=== PATIENT | female | born 1965 | race Caucasian/White ===

== ENCOUNTER → 2021-04-14 08:49 | Outpatient (CLI) | payer OTHER, SELFPAY ==
--- NOTE | ~2021-04-14 | US_ITS ---
EXAMINATION: US abdomen complete DATE: 04/14/2021 09:15 INDICATION: Elevated liver enzymes TECHNIQUE: Multiple grayscale and Doppler ultrasound images of the abdomen were obtained. COMPARISON: None FINDINGS: The pancreatic head and body are normal in appearance. The pancreatic tail is not visualized. Abdomi nal aorta is normal in caliber measuring 2.5 cm in AP diameter proximally, 2.4 cm in the mid aorta an d 2.6 cm in the distal aorta. Liver has normal echogenicity and contour, with a smooth surface. No li selina lesion identified. No intrahepatic biliary duct dilation suspected. Portal venous flow was seen i n the hepatopetal, normal direction and has normal Doppler waveform. Multiple shadowing gallstones wi thin the otherwise normal-appearing gallbladder with no gallbladder dilation or wall thickening. Sono graphic Nogueira sign was reported as negative by the correctional lieutenant. The common bile duct measures 5-6 mm in maximal diameter which is normal. There is normal renal contour and echogenicity bilaterally. The right kidney measures 10.1 x 4.8 x 5.8 cm and the left 9.1 x 5.8 x 4.3 cm. There are no focal renal lesions identified. There is no hydronephrosis. Normal spleen measuring 10.2 cm in maximal length. IMPRESSION: 1. Cholelithiasis with no evidence of cholecystitis or biliary ductal dilation. Reviewed, dictated and finalized at location A.
== END ==
PROVIDERS: Visit Provider Family Medicine
DX: R74.8 Abnormal levels of other serum enzymes (principal); K80.20 Calculus of gallbladder without cholecystitis without obstruction
CPT/HCPCS: 76700

== ENCOUNTER 2021-04-21 09:56 | Outpatient (CLI) | payer OTHER, SELFPAY ==
--- NOTE | 2021-04-21 | ECG_ITS ---
Measurements Intervals [place] Rate: 74 P: 48 ND: 130 QRS: 39 QRSD: 105 T: 57 QT: 391 QTc: 434 Interpretive Statements SINUS RHYTHM MINIMAL Q WAVES- INFERIOR LEADS BASELINE ARTIFACT- II, III, AVF BORDERLINE ECG Electronically Signed On 04-21-2021 11:21:36 CDT by Tano Dorsey D.O.
== END 2021-04-21 09:57 | disposition home or self-care (01) ==
PROVIDERS: PCP Family Medicine; Visit Provider Nurse Practitioner Adult Health
DX: E66.01 Morbid (severe) obesity due to excess calories (principal); G47.33 Obstructive sleep apnea (adult) (pediatric); I10 Essential (primary) hypertension; E11.9 Type 2 diabetes mellitus without complications; R94.31 Abnormal electrocardiogram [ECG] [EKG]
CPT/HCPCS: 93005

== ENCOUNTER 2022-08-14 14:56 | Outpatient (CLI) | payer OTHER, SELFPAY ==
--- NOTE | ~2022-08-14 | DEXA_ITS ---
Bone Density Report Name: MARCO A CAMPBELL Age: 57 Sex: Female Ethnicity: White Date of : 1965 Indication: postmenopausal; screening for osteoporosis; height loss; Referring Provider: VAMSHI ALVARES Study: Bone densitometry was performed. Exam Date: August 14, 2022 Accession number: [id number] Bone Density: Region BMD T-score Z-score Classification AP Spine(L1-L4) 0.956 -0.8 0.4 Normal Femoral Neck (Left) 0.663 -1.7 -0.5 Osteopenia Total Hip (Left) 0.794 -1.2 -0.4 Osteopenia Femoral Neck (Right) 0.660 -1.7 -0.5 Osteopenia Total Hip (Right) 0.761 -1.5 -0.7 Osteopenia Total Hip Mean 0.778 -1.4 -0.6 Osteopenia World Health Organization criteria for BMD impression classify patients as: Normal (T-score at or above -1.0), Osteopenia (T-score between -1.0 and -2.5), or Osteoporosis (T-score at or below -2.5). 10-year Fracture Risk(1): Major Osteoporotic Fracture 7.6% Hip Fracture 0.7% Reported Risk Factors: [place] (), Neck BMD=0.660, BMI=29.9 (1) FRAX(R) Version 3.08. Fracture probability calculated for an untreated patient. Fracture probability may be lower if the patient has received treatment. Clinical Information Provided by Patient: Has used the following medications: HRT (i.e. estrogen/hormone therapy), Vitamin D, Calcium Has the following medical conditions: gastric bypass Patient maximum height was 64 Menopause Age: 55 No regular weight bearing exercise Drinks caffeinated beverages Onset of menses at age 13 Number of children 1 Impression: The patient has low bone mass, based on the Left Femoral Neck T-score. The patient has an estimated ten-year risk of hip fracture of 0.7% and an estimated ten-year risk of major fracture of 7.6%, based on the WHO FRAX algorithm. Discussion: BONE DENSITY IS LOW AT ONE OR MORE SKELETAL SITES. This patient's lowest T-score is low at one or more skeletal sites. It meets the World Health Organization's (WHO) criteria for ?low bone mass? (T-score between -1.0 and -2.5). The patient's 10-year risk of fracture as calculated by FRAX is less than the threshold where pharmacological therapy is recommended by the National Osteoporosis Foundation (NOF). However, all treatment decisions require clinical judgment and consideration of individual patient factors, including patient preferences, comorbidities, previous drug use, risk factors not captured in the FRAX model (e.g., frailty, falls, vitamin D deficiency, increased bone turnover, interval significant decline in bone density) and possible under or overestimation of fracture risk by FRAX. The patient should follow a healthful lifestyle (good nutrition with adequate calcium and vitamin D, and appropriate weight-bearing exercise). Follow-Up: Consider repeating this study in 2
--- NOTE | ~2022-08-14 | MM_ITS ---
EXAMINATION: MM screening conor BI w alan HISTORY: Screening mammogram TECHNIQUE: Craniocaudal and mediolateral oblique 3-D tomosynthesis images were obtained and synthetic 2-D images were generated. CAD analysis was submitted and interpreted. COMPARISON: 04/24/2018, 06/13/2016, 06/03/2014 bilateral screening mammogram examinations BREAST PARENCHYMAL COMPOSITION: There are scattered areas of fibroglandular density. FINDINGS: There is no evidence of suspicious mass, calcification, or architectural distortion to sugg est malignancy in either breast. There has been no suspicious interval change. IMPRESSION: 1. No mammographic evidence of malignancy. 2. Recommend routine screening mammography in one year. BI-RADS Category 1: Negative Reviewed, dictated and finalized at location A.
== END 2022-08-14 14:57 | disposition home or self-care (01) ==
PROVIDERS: PCP Family Medicine; Visit Provider Obstetrics & Gynecology
DX: Z12.31 Encounter for screening mammogram for malignant neoplasm of breast (principal); Z78.0 Asymptomatic menopausal state; M85.852 Other specified disorders of bone density and structure, left thigh; M85.851 Other specified disorders of bone density and structure, right thigh
CPT/HCPCS: 77063; 77067; 77080

== ENCOUNTER 2023-09-25 09:03 | Outpatient (CLI) | payer OTHER, SELFPAY ==
--- NOTE | ~2023-09-25 | MM_ITS ---
EXAMINATION: MM screening conor BI w alan HISTORY: Screening TECHNIQUE: Craniocaudal and mediolateral oblique 3-D tomosynthesis images were obtained and synthetic 2-D images were generated. CAD analysis was submitted and interpreted. COMPARISON: Comparison to multiple prior studies sequentially, with oldest reviewed study dated 05/2018. BREAST PARENCHYMAL COMPOSITION: Breast composed of scattered areas of fibroglandular density FINDINGS: There is no evidence of suspicious mass, calcification, or architectural distortion to sugg est malignancy in either breast. There has been no suspicious interval change. IMPRESSION: 1. No mammographic evidence of malignancy. 2. Recommend routine screening mammography in one year. BI-RADS Category 1: Negative Reviewed, dictated and finalized at location A. HIATRIC NP
== END 2023-09-25 09:04 | disposition home or self-care (01) ==
LOC: ANHIMG 09:05
PROVIDERS: PCP Family Medicine; Visit Provider Obstetrics & Gynecology
DX: Z12.31 Encounter for screening mammogram for malignant neoplasm of breast (principal)
CPT/HCPCS: 77063; 77067

== ENCOUNTER 2024-10-14 13:45 | Emergency (ER) | payer OTHER, SELFPAY ==
--- NOTE | ~2024-10-14 | XR_ITS ---
XR finger 3rd LT min 2V Ordering provider: Constance Sotelo APRN History: . injury Lt 3rd finger . Comparison: None. FINDINGS: BONES: No acute fracture or dislocation. JOINT SPACES: Normal. SOFT TISSUES: Normal. IMPRESSION: No definite acute osseous abnormality. Reviewed, dictated and finalized at location A. AR TACKER
[2024-10-14 13:56] VITALS: BP 141/90; PULSE 72; RESP 16; TEMP 36.2; O2SAT 100
--- NOTE | 2024-10-14 14:06 | ED_ITS ---
HPI - Extremity Injury (Upper) General Chief Complaint: Extremity Injury, Upper Stated Complaint: left middle finger injury Source: patient Mode of arrival: ambulatory Limitations: no limitations History of Present Illness HPI narrative: 59 y/o female presented for c/o injury to left middle finger. States the finger was stuck in her dog's collar. Now reports the end of the finger is bent and she is unable to straighten the last knuckle. However she states it is less bent than it was earlier. Denies pain, numbness or tingling. Related Data Home Medications Medication Instructions Recorded Confirmed cyanocobalamin (vitamin B-12) 500 500 mcg PO DAILY 10/23/21 09/23/24 mcg tablet estradiol-norethindrone acet 1 1 tablet PO DAILY 03/29/22 09/23/24 mg-0.5 mg tablet (Mimvey) semaglutide 1 mg/dose (4 mg/3 mL) 2 mg subcut 02/21/24 09/23/24 subcutaneous pen injector (Ozempic) ondansetron HCl 4 mg tablet 4 mg PO Q6H PRN 09/23/24 09/23/24 Allergies Allergy/AdvReac Type Severity Reaction Status Date / Time No Known Allergies Allergy Unknown Verified 10/14/24 14:13 Review of Systems Review of Systems: CONSTITUTIONAL: Denies body aches, fever, chills CARDIOVASCULAR: Denies chest pain, palpitations, or edema. RESPIRATORY: Denies cough or dyspnea. SKIN: Denies wounds. MUSCULOSKELETAL: Reports left middle finger deformity NEUROLOGIC: Denies numbness, tingling, or weakness. All systems reviewed & are unremarkable except as noted in HPI and below PMFSH Past Medical History Medical History Morbid obesity with BMI of 40.0-44.9, adult PCOS (polycystic ovarian syndrome) Surgical History Surgical History H/O gastric bypass Family History Family History Grandparent Family history of thyroid disease Acute myocardial infarction Other Family history of alcoholism Family history of mental disorder Social History Social History Social History: Caffeine-daily coffee/tea Smoking status: Never smoker Alcohol intake: current Alcohol use details: wine 2-3 times weekly Substance use: never Substance use type: does not use Do You Feel Safe in your Home?: Yes Lack of Transportation: No Lack of Food: Sometimes True Current Housing: I Have Housing Concerned About Future Housing: No Difficulty Paying Gas/Electric Bills: No Difficulty Paying for Meds: No Currently Unemployed: No Education: Master's Degree or Higher Difficulty w/ Childcare or Family Care: No Comments At time of signature, I have reviewed and agree with nursing past medical, surgical, social and family history unless otherwise noted. Please see nursing chart for further information. There is no relevant family history pertinent to the presenting complaint Exam Narrative: GENERAL: Well-appearing CHEST: Speaks in full sentences. No respiratory distress. HEART: Regular rate and rhythm. Normal and equal peripheral pulses. EXTREMITIES: Left hand 3rd digit distal phalanx with approx 45 degree flexion towards palm, tolerates full extension with passive ROM. Minimally tender with palpation to DIP. No swelling. Digit has normal strength and sensation. No open wounds, No ecchymosis. pulse palpable and equal bilaterally, skin warm, dry, pink. Capillary refill less than 3 seconds. SKIN: Warm, dry NEURO: Alert and oriented x3. PSYCH: Normal mood and affect Course Course Emergency Course: Patient is aware of diagnosis, understands and agrees to treatment plan. Anticipatory guidance given. Patient agrees to follow-up as directed and is aware of reasons to seek care at the emergency department. Portions of this record may have been created with voice recognition software Level of Care: Express Care Visit Vital Signs Vital signs: Vital Signs Temperature 97.1 F L 10/14/24 13:56 Pulse Rate 72 10/14/24 13:56 Respiratory Rate 16 10/14/24 13:56 Blood Pressure 141/90 H 10/14/24 13:56 Pulse Oximetry 100 10/14/24 13:56 Temperature 97.1 F L 10/14/24 13:56 Pulse Rate 72 10/14/24 13:56 Respiratory Rate 16 10/14/24 13:56 Blood Pressure 141/90 H 10/14/24 13:56 Pulse Oximetry 100 10/14/24 13:56 Oxygen Delivery Room Air 10/14/24 14:00 Reviewed MDM - Extremity Injury (Upper) MDM Narrative Medical decision making narrative: Discussed physical exam findings and xray. Metal finger splint applied. Advised supportive measures and signs/symptoms to go to the ER. Pt is appropriate for outpt treatment and f/u with pcp/Hand specialist. Differential Diagnosis Differential diagnosis: Likely finger sprain, dislocation of finger and other (finger fracture) Imaging Data Radiologist's impression: Patient: Eufemia Polk : 1965 MR#: [id number] Age: 59 Acct:[id number] Loc: [facility] ADM Date: 10/14/24Attending Dr: Ordering Physician: Constance Sotelo APRN Date of Service: 10/14/24 Procedure(s): XR finger 3rd LT min 2V Accession Number(s): [id number] cc: Constance Sotelo APRN; Mustapha Irving MD~ XR finger 3rd LT min 2V Ordering provider: Constance Sotelo APRN History: . injury Lt 3rd finger . Comparison: None. FINDINGS: BONES: No acute fracture or dislocation. JOINT SPACES: Normal. SOFT TISSUES: Normal. IMPRESSION: No definite acute osseous abnormality. Discharge Plan Discharge Clinical Impression: Finger sprain Patient Disposition: Home, Self-Care Condition: Stable Instructions: Finger Sprain (ED) Additional Instructions: Rest and elevate the right hand Apply ice 15-20 minute intervals several times a day Keep the splint in place, removing it often to perform range of motion exercises until seen by PCP Motrin 600mg alternate with Tylenol 1000mg every 8 hours as needed Follow up with your primary care provider, call to schedule appointment Go to the ER for worsening symptoms or concerns Prescriptions: No Action estradiol-norethindrone acet [Mimvey] 1-0.5 mg tablet 1 tablet PO DAILY mometasone 0.1 % ointment 1 applic topical DAILY PRN (Reason: rash) Qty: 15 1RF cyanocobalamin (vitamin B-12) 500 mcg tablet 500 mcg PO DAILY Ozempic 1 mg/dose (4 mg/3 mL) pen injector 2 mg subcut ondansetron HCl 4 mg tablet 4 mg PO Q6H PRN omeprazole 40 mg capsule,delayed release(DR/EC) 40 mg PO DAILY Qty: 90 1RF diphenhydramine HCl [Benadryl] 25 mg capsule 25 mg PO QHS Qty: 30 0RF hydrochlorothiazide 12.5 mg tablet See Rx Instructions .ROUTE .COMPLEX Qty: 90 3RF Dose Instruction: TAKE 1 TABLET DAILY Rx Instructions: TAKE 1 TABLET DAILY irbesartan 300 mg tablet 300 mg PO DAILY Qty: 90 1RF bupropion HCl [Wellbutrin XL] 300 mg tablet extended release 24 hr 300 mg PO QAM Qty: 90 1RF triamcinolone acetonide 0.025 % ointment 1 applic topical TID Qty: 15 0RF Follow-up/Referrals: Johann Moss MD [Physician] - Mustapha Irving MD [Primary Care Provider] - Time of Disposition: 14:49
--- NOTE | 2024-10-14 15:00 | PC.NURSE ---
+PMS POST SPLINT APPLICATION
== END 2024-10-14 14:53 | disposition home or self-care (01) ==
PROVIDERS: Emergency Provider Nurse Practitioner Family; PCP Family Medicine
DX: S63.613A Unspecified sprain of left middle finger, initial encounter (principal); X58.XXXA Exposure to other specified factors, initial encounter; E28.2 Polycystic ovarian syndrome; E66.01 Morbid (severe) obesity due to excess calories; Z68.23 Body mass index [BMI] 23.0-23.9, adult; Z98.84 Bariatric surgery status
CPT/HCPCS: 29130; 73140; 99213; G0463

== ENCOUNTER 2025-06-07 10:12 | Outpatient (CLI) | payer OTHER, SELFPAY ==
--- NOTE | ~2025-06-07 | DEXA_ITS ---
Bone Density Report Name: MARCO A CAMPBELL Age: 60 Sex: Female Ethnicity: White Date of : 1965 Indication: osteopenia; height loss; Referring Provider: SUSAN STONE Study: Bone densitometry was performed. Exam Date: June 07, 2025 Accession number: [id number] Bone Density: Region BMD T-score Z-score Classification AP Spine(L1-L4) 0.999 -0.4 1.0 Normal Femoral Neck (Left) 0.668 -1.6 -0.3 Osteopenia Total Hip (Left) 0.800 -1.2 -0.2 Osteopenia Femoral Neck (Right) 0.615 -2.1 -0.8 Osteopenia Total Hip (Right) 0.735 -1.7 -0.7 Osteopenia Total Hip Mean 0.767 -1.5 -0.5 Osteopenia World Health Organization criteria for BMD impression classify patients as: Normal (T-score at or above -1.0), Osteopenia (T-score between -1.0 and -2.5), or Osteoporosis (T-score at or below -2.5). 10-year Fracture Risk(1): Major Osteoporotic Fracture 9.8% Hip Fracture 1.3% Reported Risk Factors: [place] (), Neck BMD=0.615, BMI=24.8 (1) FRAX(R) Version 3.08. Fracture probability calculated for an untreated patient. Fracture probability may be lower if the patient has received treatment. Previous Exams: Region Exam Age BMD T-score BMD Change BMD Change Date g/cm2 vs Baseline vs Previous AP Spine (L1-L4) 06/07/2025 60 0.999 -0.4 0.043 (4.5%)* 0.043 (4.5%)* 08/14/2022 57 0.956 -0.8 Total Hip(Left) 06/07/2025 60 0.800 -1.2 0.006 (0.7%) 0.006 (0.7%) 08/14/2022 57 0.794 -1.2 Total Hip(Right) 06/07/2025 60 0.735 -1.7 -0.027 (-3.5%) -0.027 (-3.5%) 08/14/2022 57 0.761 -1.5 *Denotes significance at 95% confidence level, LSC for AP Spine = 0.022 g/cm2, LSC for Total Hip = 0.027 g/cm2 Clinical Information Provided by Patient: Has used the following medications: Vitamin D, Calcium Patient maximum height was 64.0 Menopause Age: 55 No regular weight bearing exercise Drinks caffeinated beverages Onset of menses at age 13 Number of children 1 Missed period for more than 6 months in a row Impression: The patient has low bone mass, based on the Right Femoral Neck T-score. The patient has an estimated ten-year risk of hip fracture of 1.3% and an estimated ten-year risk of major fracture of 9.8%, based on the WHO FRAX algorithm. No significant bone loss was observed. Discussion: BONE DENSITY IS LOW AT ONE OR MORE SKELETAL SITES. This patient's lowest T-score is low at one or more skeletal sites. It meets the World Health Organization's (WHO) criteria for ?low bone mass? (T-score between -1.0 and -2.5). The patient's 10-year risk of fracture as calculated by FRAX is less than the threshold where pharmacological therapy is recommended by the National Osteoporosis Foundation (NOF). However, all treatment decisions require clinical judgment and consideration of individual patient factors, including patient preferences, comorbidities, previous drug use, risk factors not captured in the FRAX model (e.g., frailty, falls, vitamin D deficiency, increased bone turnover, interval significant decline in bone density) and possible under or overestimation of fracture risk by FRAX. The patient should follow a healthful lifestyle (good nutrition with adequate calcium and vitamin D, and appropriate weight-bearing exercise). Follow-Up: Consider repeating this study in 2 to 3 years to reassess this patient's status, or sooner if there is some new clinical indication. Reported by: ARAVIND on 06/07/2025 11:17:00 AM. Reviewed, dictated and finalized at location A.
--- NOTE | ~2025-06-07 | MM_ITS ---
EXAMINATION: MM screening conor BI w alan HISTORY: Screening TECHNIQUE: Craniocaudal and mediolateral oblique 3-D tomosynthesis images were obtained and synthetic 2-D images were generated. CAD analysis was submitted and interpreted. COMPARISON: Comparison to multiple prior studies sequentially, with oldest reviewed study dated 06/13. BREAST PARENCHYMAL COMPOSITION: There are scattered areas of fibroglandular density. FINDINGS: There is no evidence of suspicious mass, calcification, or architectural distortion to sug gest malignancy in either breast. IMPRESSION: 1. No mammographic evidence of malignancy. 2. Recommend routine screening mammography in one year. BI-RADS Category 1: Negative Reviewed, dictated and finalized at location B.
--- OUTSIDE RECORDS SUMMARY | 2025-06-07 10:21 | XMS_ITS | Referral Summary ---
Author Organization [facility] [address] [place] [id number] Care Team Providers Care International Exchange Coordinator Name Role Phone Mustapha Irving MD Primary Care Provider [phone] Rudi Hinojosa MD Unavailable [phone] Allergies Active Allergy Reactions Criticality Noted Date Comments Metformin Diarrhea High 07/04/2021 Medications irbesartan (AVAPRO) 300 mg tablet Take 1 tablet (300 mg total) by mouth every morning 03/23/20 21 Active estradiol-norethin drone (ACTIVELLA) 1-0.5 mg per tablet 07/26/20 22 Active hydroCHLOROthiazid e (HYDRODIURIL) 12.5 mg tablet 03/19/20 23 Active cyanocobalamin (Vitamin B-12) 500 mcg tabletIndications: Prevention of Vitamin B12 Deficiency Take 1 tablet (500 mcg total) by mouth daily 90 tablet 3 07/29/20 23 Active buPROPion XL (WELLBUTRIN XL) 300 mg 24 hr tablet 07/29/20 23 Active ondansetron ODT (ZOFRAN-ODT) 4 mg disintegrating tabletIndications: Nausea Take 1 tablet (4 mg total) by mouth every 8 (eight) hours as needed for nausea or vomiting 30 tablet 11 08/06/20 24 Active semaglutide (Ozempic) 2 mg/dose (8 mg/3 mL) pen injector injectionIndicatio ns:BMI 24.0-24.9, adult,Type 2 diabetes mellitus without complication, without long-term current use of insulin (HCC) INJECT 2 MG SUBCUTANEOUSLY EVERY 7 DAYS 3 mL 3 04/14/20 Active Active Problems Problem Noted Date Diagnosed Date BMI 30.0-30.9,adult 04/11/2023 Status post bariatric surgery 03/19/2023 Type 2 diabetes mellitus wit hout complication, without long-term current use of insulin 06/09/2021 Hypertension associated with diabetes 06/09/2021 Assessment & Plan (07/04/2021 11:34 AM CDT): Uncontrolled Low-salt diet discussed Add chlorthalidone Check microalbumin Obstructive sleep apnea 06/09/2021 Major depressive disorder, recurrent episode, mi ld 06/09/2021 Type 2 diabetes mellitus wit h hyperglycemia, without long-term current use of insulin 03/28/2021 Assessment & Plan (07/04/2021 11:35 AM CDT): Hba1c was Lab Results Component Value Date HGBA1C 5.8 07/04/2021 today, indicating adequate DM control Goals blood sugars of 120-160 and Hba1c under 7 % was explained. 1800 calorie, consistent carb diet recommended, no more than 3-45 grams of carbs per meal, avoiding concentrated sweet drinks and rapid absorption carbs. 25-45 min daily aerobic and resistance exercise recommended Blood glucose monitoring with fingers sticks. Continue Ozempic, but might need to stop if the GI symptoms continue worsening I advised the patient to keep a journal about her symptoms and probably relationship with food Assessment & Plan (03/28/2021 4:45 PM CDT): Hba1c was Lab Results Component Value Date HGBA1C 6.2 03/28/2021 today, indicating adequate ... DM control Goal blood sugars in the 120-150 range , with Hb1c under 7.0 % was explained 1800 calorie, consistent carb diet recommended. No more than 30-45 grams of carbs per meal recommended, as well as avoiding high concentrated sweet drinks . 25-45 min daily exercise, combining both aerobic and resistance exercise recommended. Stop metformin Start Ozempic Resolved Problems Problem Noted Date Diagnosed Date Resolved Date Morbid obesity 03/28/2021 03/19/2023 Assessment & Plan (07/04/2021 11:35 AM CDT): Continue working on diet and exercise Bariatric surgery to be done within the next few weeks or months Assessment & Plan (03/28/2021 4:46 PM CDT): Diet and exercise were discussed. 1200 Calorie diet advised She has signed up for the [employer], to use it who her smart phone 45-60 min aerobic / resistance exercise most days of the week recommended. Bariatric surgery medically indicated Patient will let me know if she wants me to send a referral to the bariatric center [facility] Social History Tobacco Use Types Packs/Day Years Used Date Smoking Tobacco: Never Smokeless Tobacco: Never Tobacco Cessation:Counseling Given: Not Answered AUDIT-C Answer Date Recorded Q1: How often do you have a drink containing alc ohol? Monthly or less 01/14/2024 Q2: How many drinks containi ng alcohol do you have on a typical day when you are drinking? 1 or 2 01/14/2024 Q3: How often do you have si x or more drinks on one occasion? 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 Gender Identity Female 04/13/2021 6:23 PM CDT Sexual Orientation Not on file Last Filed Vital Signs Vital Sign Reading Time Taken Comments Blood Pressure 139/88 04/16/2024 3:35 PM CDT Pulse 74 04/16/2024 3:35 PM CDT Temperature 37.1 C (98.8 F) 04/16/2024 3:35 PM CDT Respiratory Rate 16 08/10/2021 12:05 PM CDT Oxygen Saturation 96% 04/16/2024 3:35 PM CDT Inhaled Oxygen Concentration - - Weight 62.1 kg (137 lb) 04/16/2024 3:35 PM CDT Height 162.6 cm (5' 4) 04/16/2024 3:35 PM CDT Body Mass Index 23.52 04/16/2024 3:35 PM CDT Plan of Treatment Not on file Procedures Procedure Name Priority Date/Time Associated Diagnosis Comments COMPREHENSIVE METABOLIC PANEL Routine 01/27/2024 10:45 AM CDT BMI 24.0-24.9, adult Type 2 diabetes mellitus without complication, without long-term current use of insulin (HCC) H/O gastric bypass Intestinal malabsorption, unspecified type HEMOGLOBIN A1C Routine 01/27/2024 10:45 AM CDT BMI 24.0-24.9, adult Type 2 diabetes mellitus without complication, without long-term current use of insulin (HCC) H/O gastric bypass Intestinal malabsorption, unspecified type LIPID PANEL Routine 01/27/2024 10:45 AM CDT BMI 24.0-24.9, adult Type 2 diabetes mellitus without complication, without long-term current use of insulin (HCC) H/O gastric bypass Intestinal malabsorption, unspecified type ALBUMIN CREATININE RATIO, URINE Routine 07/17/2021 10:21 AM CDT Type 2 diabetes mellitus with hyperglycemia, without long-term current use of insulin ([facility]) from Last 3 Months or Most Recently Relevant to Health Maintenance Results * Hemoglobin A1c (01/27/2024 10:45 AM CDT) Hgb A1C 5.2 4.8 - 5.6 % [facility] - 01 Comment: Prediabetes: 5.7 - 6.4 Diabetes: >6.4 Glycemic control for adults with diabetes: <7.0 Blood 01/27/2024 10:4 5 AM CDT 01/27/2024 Narrative [facility] - 01/28/2024 2:08 AM CDT Performed at: - [facility] [id number] Chief Design Branch: Marin Aguillon PhD, Phone: [phone] us Alena Belcher NP LAB BLOOD ORDERABLES Final Result [facility] - 01 * Lipid panel (01/27/2024 10:45 AM CDT) Cholesterol 106 100 - 199 mg/dL [facility] - 01 Triglycerides 86 0 - 149 mg/dL [facility] - 01 HDL Cholesterol 50 >39 mg/dL [facility] - 01 VLDL 17 5 - 40 mg/dL [facility] - 01 LDL, calculated 39 0 - 99 mg/dL [facility] - 01 Blood 01/27/2024 10:4 5 AM CDT 01/27/2024 Narrative [facility] - 01/28/2024 3:35 AM CDT Performed at: - [address] [id number] Chief Design Branch: Marin Aguillon PhD, Phone: [phone] us Alena Belcher NP LAB BLOOD ORDERABLES Final Result [facility] - 01 * (ABNORMAL) Comprehensive metabolic panel (01/27/2024 10:45 AM CDT) Pathologist [facility] Glucose 78 70 - 99 mg/dL [facility] - 01 BUN 10 6 - 24 mg/dL [facility] - 01 Creatinine, Serum 0.58 0.57 - 1.00 mg/dL [facility] - 01 eGFR 105 >59 mL/min/1.7 3 [facility] - 01 BUN/creat ratio 17 9 - 23 [facility] - 01 Sodium 140 134 - 144 mmol/L [facility] - 01 Potassium, sr 3.6 3.5 - 5.2 mmol/L [facility] - 01 Chloride 101 96 - 106 mmol/L [facility] - 01 CO2 27 20 - 29 mmol/L [facility] - 01 Calcium 9.2 8.7 - 10.2 mg/dL [facility] - 01 Protein, sr 6.5 6.0 - 8.5 g/dL [facility] - 01 Albumin 3.9 3.8 - 4.9 g/dL [facility] - 01 Globulin, Total 2.6 1.5 - 4.5 g/dL [facility] - 01 A/G Ratio 1.5 1.2 - 2.2 [facility] - 01 Bilirubin, Total 0.4 0.0 - 1.2 mg/dL [facility] - 01 Alk phos 143(H) 44 - 121 IU/L [facility] - 01 AST 15 0 - 40 IU/L [facility] - 01 ALT 12 0 - 32 IU/L [facility] - 01 Blood 01/27/2024 10:4 5 AM CDT 01/27/2024 Narrative [facility] - 01/28/2024 3:35 AM CDT Performed at: [address] [id number] Chief Design Branch: Marin Aguillon PhD, Phone: [phone] us Alena Belcher NP LAB BLOOD ORDERABLES Final Result Performing Organization Address City/[facility]/ZIP Co de Phone Number [facility] * Albumin Creatinine Ratio, Urine (07/17/2021 10:21 AM CDT) Creatinine ur 52.0 Not Estab. mg/dL [facility] - 01 Microalbumin, ur <3.0 Not Estab. ug/mL [facility] - 01 Comment:Verified by repeat analysis Microalbumin/cre at ratio <6 0 - 29 mg/g creat [facility] - 01 Comment: Normal: 0 - 29 Moderately increased: 30 - 300 Severely increased: >300 Urine 07/17/2021 10:2 1 AM CDT 07/17/2021 Narrative [facility] - 07/20/2021 1:06 AM CDT Performed at: [facility] [id number] Chief Design Branch: Marin Aguillon PhD, Phone: [phone] us Kanwal Wing MD LAB URINE ORDERABLES Final Resul t [facility] from Last 3 Months or Most Recently Relevant to Health Maintenance Insurance [facility] CHO[facility] PLUS [facility] CHO[facility] PLUS Advance Directives For more information, please contact: [phone] Documents on File Type Date Recorded Patient Mill Attendant Expl anation ADVANCE DIRECTIVE 08/08/2021 9:31 AM healt hcare power of sports attorney * Full Code (Latest Code Status on File) Date Activated Date Inactivated Comments 08/09/2021 6:02 PM 08/10/2021 8:34 PM Care Teams International Exchange Coordinator Relationship Specialty Start Date End Date Mustapha Irving MD PCP - General Family Medicine 02/22/21 Rudi Hinojosa MD [id number] [address] Referring Physician Obstetrics and Gynecology 02/22/21
--- OUTSIDE RECORDS SUMMARY | 2025-06-07 10:21 | XMS_ITS | Clinical Summary ---
Author Organization [facility] Physician Office Building [address] [place] [id number] Care Team Providers Care Editor Dictionary Name Role Phone Mustapha Irving MD Primary Care Provider [phone] Rudi Hinojosa MD Unavailable [phone] Allergies Active Allergy Reactions Criticality Noted Date [...] send a referral to the bariatric center [facility] Surgical History Surgery Date Site/Laterality Comments FOOT SURGERY MULTIPLE TOOTH EXTRACTIONS Medical History Medical History Date Comments Type 2 diabetes mellitus (HCC) Anxiety Depression Hypertension Gestational diabetes Vitamin D deficiency Morbid obesity (HCC) Sleep apnea 2013 does not use cpa p Family History Medical History Relation Name Comments Alcohol abuse Mother Depression Mother Mental illness Mother Suicide Completion Mother Relation Name Status Comments Father Mother Social History Tobacco Use Types Packs/Day Years [...] on file 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 Gender Identity Female 04/13/2021 6:23 PM CDT Sexual Orientation Not on file Obstetrics History Last Filed Vital Signs Vital Sign Reading [...] 04/16/2024 3:35 PM CDT Plan of Treatment Health Maintenance Due Date Last Done Comments Breast Cancer Screening-Mammogram 1965 Cervical Cancer Screening 1965 Colon Cancer Screening-Colonoscopy 1965 Hepatitis C Screening 1965 Dilated Eye Exam 1965 DTaP/Tdap/Td Vaccine (1 - Tdap) 1976 Hepatitis B Screening 1983 Regular Well Visit/Exam 18-64 1983 Pneumococcal vaccine <65 (1 of 2 - PCV) 1984 Zoster Vaccine (1 of 2) 2015 Depression Screening 03/28/2022 03/28/2021 Foot Exam 07/04/2022 07/04/2021 Albumin Creatinine Ratio, Urine 07/17/2022 Hemoglobin A1C 07/29/2024 01/27/2024, 07/2023, 09/24/2022, Additional history exists Lipid Panel 01/26/2025 01/27/2024, 05/2022, 02/21/2022, Additional history exists eGFR 01/26/2025 01/27/2024, 05/2022, 08/10/2021, Additional history exists Influenza Vaccine (#1) 2025 , 08/09/2019, 07/09/2018 Procedures Procedure Name Priority Date/Time Associated Diagnosis [...] complication, without long-term current use of insulin ([facility]) H/O gastric bypass Intestinal malabsorption, unspecified type ALBUMIN CREATININE RATIO, URINE Routine 07/17/2021 10:21 AM CDT Type 2 diabetes mellitus with hyperglycemia, without long-term current use of insulin ([facility]) from Last 3 Months or Most Recently Relevant to Health Maintenance Results * Hemoglobin A1c (01/27/2024 10:45 AM CDT) Pathologist [facility] Hgb A1C 5.2 4.8 - 5.6 % [facility] - 01 Comment: Prediabetes: 5.7 - 6.4 Diabetes: >6.4 Glycemic control for adults with diabetes: <7.0 Blood 01/27/2024 10:4 5 AM CDT 01/27/2024 Narrative [facility] - 01/28/2024 2:08 AM CDT Performed at: [facility] [id number] Bleach Analyst: Marin Aguillon PhD, Phone: [phone] us Alena Belcher DEAN LAB BLOOD ORDERABLES Final Result [facility] - 01 * Lipid panel (01/27/2024 10:45 AM CDT) Pathologist [facility] Cholesterol 106 100 - 199 mg/dL [facility] - 01 Triglycerides 86 0 - 149 mg/dL [facility] - 01 HDL Cholesterol 50 >39 mg/dL [facility] - 01 VLDL 17 5 - 40 mg/dL [facility] - 01 LDL, calculated 39 0 - 99 mg/dL [facility] - 01 Blood 01/27/2024 10:4 5 AM CDT 01/27/2024 Narrative [facility] - 01/28/2024 3:35 AM CDT Performed at: [facility] [id number] Bleach Analyst: Marin Aguillon PhD, Phone: [phone] us Alena Belcher NP LAB BLOOD ORDERABLES Final Result [facility] - 01 * (ABNORMAL) Comprehensive metabolic panel (01/27/2024 10:45 AM CDT) [facility] Glucose 78 70 - 99 mg/dL [facility] [...] - 01/28/2024 3:35 AM CDT Performed at: 01 - [facility] [id number] Bleach Analyst: Marin Aguillon PhD, Phone: [phone] us Alena Belcher NP LAB BLOOD ORDERABLES Final Result [facility] - 01 * Albumin Creatinine Ratio, Urine (07/17/2021 10:21 [...] - 07/20/2021 1:06 AM CDT Performed at: [address] [place] [id number] Bleach Analyst: Marin Aguillon PhD, Phone: [phone] us Kanwal Wing MD LAB URINE ORDERABLES Final Resul t Performing Organization Address City/[facility] Co de Phone Number [facility] - 01 from Last 3 Months or Most Recently Relevant to Health Maintenance Insurance [facility] Address: [facility] [address] [place] [address] [facility] [employer] [facility] [employer] Address: [address] [address] Advance Directives For more information, please contact: [phone] Documents on File Type Date Recorded Patient Division Order Analyst Expl anation ADVANCE DIRECTIVE 08/08/2021 9:31 AM healt hcare power of assistant county attorney * Full Code (Latest Code Status on File) Date Activated Date Inactivated Comments 08/09/2021 6:02 PM 08/10/2021 8:34 PM Care Teams Editor Dictionary Relationship Specialty Start Date End Date Mustapha Irving MD PCP - General Family Medicine 02/22/21 Rudi Hinojosa MD [address] [address] Referring Physician Obstetrics and Gynecology 02/22/21
--- OUTSIDE RECORDS SUMMARY | 2025-06-07 10:21 | XMS_ITS | Clinical Summary ---
Author Organization [employer] Address [address] [place] [address] Care Team Providers Care Regulator Assembler Name Role Phone Mustapha Irving MD Primary Care Provider [phone] Source Comments [facility],non-owned Affiliates and Associated Physician Practices is amultiple site organization consisting of ambulatory clinics and hospital sitesin [place], [place], [place] and [place]. This disclosure is being madepursuant to the Care Everywhere program and may not contain all information available regarding this patient. Last updated 18.[facility] Allergies No known active allergies Medications * Be aware that medications may not be up to date on this document. Alwaysverify current medications with the patient. 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 Gender Identity Not on file Sexual Orientation Not on file Last Filed Vital Signs Vital Sign Reading Time Taken Comments Blood Pressure 132/76 01/02/2020 11:52 AM INSPECTOR OUTSIDE STEAM DISTRIBUTION Pulse 77 01/02/2020 11:52 AM INSPECTOR OUTSIDE STEAM DISTRIBUTION Temperature 37.6 C (99.7 F) 01/02/2020 11:52 AM INSPECTOR OUTSIDE STEAM DISTRIBUTION Respiratory Rate 16 01/02/2020 11:52 AM INSPECTOR OUTSIDE STEAM DISTRIBUTION Oxygen Saturation 94% 01/02/2020 11:52 AM INSPECTOR OUTSIDE STEAM DISTRIBUTION Inhaled Oxygen Concentration - - Weight 114.8 kg (253 lb) 01/02/2020 11:52 AM INSPECTOR OUTSIDE STEAM DISTRIBUTION Height 162.6 cm (5' 4) 01/02/2020 11:52 AM INSPECTOR OUTSIDE STEAM DISTRIBUTION Body Mass Index 43.43 01/02/2020 11:52 AM INSPECTOR OUTSIDE STEAM DISTRIBUTION Plan of Treatment Health Maintenance Due Date Last Done Comments COLOGUARD (AGES 45-75) - COL ON CA SCREENING 1965 COLON MONITORING 1965 COLONOSCOPY - COLON CA SCREENING 1965 CT COLONOGRAPHY - COLON CA SCREENING 1965 Colorectal Cancer Screening 1965 FIT - COLON CA SCREENING 1965 FLEX SIG - COLON CA SCREENING 1965 LIPID TESTING 1965 MAMMOGRAM 1965 HIV SCREENING 1980 HEPATITIS C SCREENING 03/20/1983 DTAP/TDAP/TD VACCINES (1 - Tdap) 1984 PNEUMOCOCCAL VACCINE 50+ (1 of 1 - PCV) 2015 ZOSTER VACCINE (1 of 2) 2015 SCREENING FOR DIABETES 01/02/2020 COVID-19 VACCINE (1 - 2023-2 5 season) 2024 DEPRESSION SCREENING 11/18/2024 INFLUENZA VACCINE (#1) 2025 Respiratory Syncytial Virus (RSV) Vaccine Pt: or over 60 yrs (1 - 1-dose 75+ series) 2040 HEPATITIS B VACCINE Aged Out No longe r eligible based on patient's age to complete this topic HIB VACCINE Aged Out No longer eligi ble based on patient's age to complete this topic HPV VACCINE Aged Out No longer eligi ble based on patient's age to complete this topic MENINGOCOCCAL (Group B) VACC INE SHARED DECISION-MAKING Aged Out No longer eligibl e based on patient's age to complete this topic MENINGOCOCCAL GROUPS A/C/Y/W VACCINE Aged Out No longer eligible b ased on patient's age to complete this topic Insurance [facility] Care Teams Regulator Assembler Relationship Specialty Start Date End Date Mustapha Irving MD [address] [place] [phone] PCP - General Family Medicine 01/02/20
== END 2025-06-07 10:13 | disposition home or self-care (01) ==
PROVIDERS: PCP Family Medicine; Visit Provider Obstetrics & Gynecology
DX: Z12.31 Encounter for screening mammogram for malignant neoplasm of breast (principal); M85.80 Other specified disorders of bone density and structure, unspecified site; M85.852 Other specified disorders of bone density and structure, left thigh; M85.851 Other specified disorders of bone density and structure, right thigh
CPT/HCPCS: 77063; 77067; 77080